=== PATIENT | female | born 1995 | race Caucasian/White ===

== ENCOUNTER 2019-03-20 01:17 | Emergency (ER) | payer OTHER ==
[~2019-03-20] VITALS: Ht 167.6 cm; Wt 149.7 kg
[2019-03-20 02:15] LABS: ANION GAP 13 mmol/L (7-16); BUN 14 mg/dL (7-18); CALCIUM 8.7 mg/dL (8.5-10.1); CHLORIDE 107 mmol/L (98-107); CO2 23 mmol/L (21-32); CREATININE 0.8 mg/dL (0.6-1.0); GLUCOSE 141 mg/dL (74-106); POTASSIUM 3.5 mmol/L (3.5-5.1); SODIUM 143 mmol/L (136-145)
[2019-03-20 02:23] LABS: HEMOGLOBIN 12.9 gm/dL (12.0-15.0)
[2019-03-20 02:24] LABS: BASOPHILS 0.9 % (0.0-2.0); EOSINOPHILS 2.7 % (0.0-3.0); HEMATOCRIT 38.1 % (37.0-47.0); LYMPHOCYTES 32.3 % (24.0-44.0); MCH 27.1 pg (26.0-34.0); MCHC 33.8 g/dL (28.0-37.0); MCV 80.2 fL (80.0-100.0); MONOCYTES 9.3 % (1.0-8.0); PLATELET COUNT 305 thou/uL (150-400); POLYS 54.8 % (36.0-66.0); RBC 4.75 mil/uL (4.20-5.00); RDW 13.4 % (10.5-14.5); WBC 12.5 thou/uL (4.0-11.0)
[2019-03-20 02:26] LABS: ALBUMIN 3.9 g/dL (3.4-5.0); DIRECT BILIRUBIN < 0.1 mg/dL (<0.1-0.3); LIPASE 222 U/L (73-393); SGOT 26 U/L (15-37); SGPT 52 U/L (30-65); TOTAL BILIRUBIN 0.3 mg/dL (<0.1-1.0); TOTAL PROTEIN 7.2 g/dL (6.4-8.2); TROPONIN-I <0.06 ng/mL (<0.06)
[2019-03-20 02:29] VITALS: BP 128/67
--- NOTE | 2019-03-21 11:41 | EKG ---
[address] [address] ELECTROCARDIOGRAM REPORT Name: BRUNO LIU Room #: DEP TOÑO Colon#: [id number] Admission: 03/20/19 Attend Phys: Discharge: 03/20/19 Date of : [birth year] Report #: [id number] THIS REPORT FOR: //name// Formerly [facility] ED Test Date: 2019-03-20 Test Time: 01:27:18 Pat Name: BRUNO LIU Department: Room: Gender: F Ophthalmic Aide: krystin suero : 1995 Requested By: Mayra Bhatti Order Number: [id number] MD: Karsten Bravo Measurements Intervals [place] Rate: 94 P: 44 VA: 136 QRS: 44 QRSD: 86 T: 3 QT: 335 QTc: 419 Interpretive Statements Sinus rhythm No previous ECG available for comparison Electronically Signed On 03-21-2019 11:41:25 CDT by Karsten Bravo [email or web address] <ELECTRONICALLY SIGNED> By: Karsten Bravo MD 03/21/19 1141 0127 [id number] Karsten Bravo MD /ARA
== END 2019-03-20 03:20 | disposition home or self-care (01) ==
LOC: ER 01:17
PROVIDERS: Emergency Medicine
DX: K21.9 Gastro-esophageal reflux disease without esophagitis (principal); F41.9 Anxiety disorder, unspecified; E11.9 Type 2 diabetes mellitus without complications; E78.00 Pure hypercholesterolemia, unspecified; I10 Essential (primary) hypertension; Z88.0 Allergy status to penicillin; Z88.2 Allergy status to sulfonamides